=== PATIENT | female | born 2000 | race Caucasian/White ===

== ENCOUNTER → 2019-09-17 | Outpatient (CLI) | payer OTHER ==
--- NOTE | 2019-09-17 14:06 | Diagnostic Imaging Report ---
PROCEDURE: US PELVIC (NON OB) TECHNIQUE: Multiple real-time grayscale images were obtained over the pelvis in various projections transabdominally. INDICATION: Dyspareunia. FINDINGS: Uterus is anteverted measuring 6.5 x 4.6 x 6.7 cm. Endometrium is 12 mm in thickness. No uterine mass is detected. Right ovary measures 3.3 x 1.9 x 2.5 cm and the left ovary measures 2.5 x 1.5 x 1.5 cm. There is blood flow to both ovaries. No adnexal mass is seen. There is some free fluid in the cul-de-sac. IMPRESSION: Unremarkable pelvic ultrasound. Dictated by: Dictated on workstation # [id number]
== END ==
LOC: RAD 12:01
PROVIDERS: ATTEND Obstetrics & Gynecology
DX: N94.10 Unspecified dyspareunia (principal)
CPT/HCPCS: 76856

== ENCOUNTER 2019-11-01 08:42 | Outpatient (RCR) | payer OTHER | END 2020-01-14 | disposition home or self-care (01) | PROVIDERS: ATTEND Obstetrics & Gynecology | DX: N94.10 Unspecified dyspareunia (principal); N94.2 Vaginismus; M62.838 Other muscle spasm; Z62.810 Personal history of physical and sexual abuse in childhood ==

== ENCOUNTER → 2021-01-29 | Outpatient (REF) ==
--- NOTE | 2021-01-29 12:54 | Diagnostic Imaging Report ---
INDICATION: Injury to the right foot and pain. TIME OF EXAM: 12:35 PM Three views of the right foot were obtained. The metatarsals appear intact. Phalanges are intact. Midfoot and hindfoot are unremarkable. No fractures are seen. IMPRESSION: No acute bony abnormality is detected. Dictated by: Dictated on workstation # [id number]
--- NOTE | 2021-01-29 12:55 | Diagnostic Imaging Report ---
Indication: Injury to right ankle AP, oblique, and lateral views the right ankle are obtained No fracture or acute bony abnormality is seen. Joint spaces are unremarkable. IMPRESSION: Negative right ankle. Dictated by: Dictated on workstation # [id number]
== END ==
LOC: OCC 12:14
PROVIDERS: ATTEND Nurse Practitioner Family
DX: S99.911A Unspecified injury of right ankle, initial encounter (principal); X58.XXXA Exposure to other specified factors, initial encounter
CPT/HCPCS: 73610; 73630

== ENCOUNTER → 2023-04-28 | Outpatient (CLI) | payer OTHER ==
[~2023-04-28] MED LIST: CATHETER FLUSH 10 ML SYR IVP PRN
--- NOTE | 2023-04-28 14:35 | Diagnostic Imaging Report ---
RADIOPHARMACEUTICAL: 5.06 mCi Tc-99m Choletec IV TECHNIQUE: Anterior dynamic imaging for 45 minutes. Additional 60 minutes of imaging was obtained after the patient ingested an 8-ounce can of Ensure. INDICATION: Nausea. COMPARISON: None available. FINDINGS: There is homogenous uptake throughout the liver. The gallbladder is visualized at 15 minutes and small bowel at 25 minutes. After CCK analog administration, there is abnormal contraction of the gallbladder with abnormally low calculated GBEF at 22%. IMPRESSION: 1. No evidence of acute cholecystitis or common duct obstruction. 2. Abnormally low GBEF of 22%. This can be secondary to underlying chronic acalculous cholecystitis versus biliary dyskinesia. Some medications can also result in decreased gallbladder ejection fractions. Dictated by: Dictated on workstation # [id number]
== END ==
LOC: CARD 09:43
PROVIDERS: ATTEND Family Medicine
DX: R11.0 Nausea (principal)
CPT/HCPCS: 78227; A9537